=== PATIENT | male | born 1955 | race Caucasian/White ===

== ENCOUNTER 2016-08-25 14:43 | Observation (INO) | payer BC, OTHER ==
[~2016-08-25] VITALS: Ht 167.6 cm; Wt 106.2 kg
[~2016-08-25 14:43] MED LIST: AGM875 PO; ASPEC81 PO; MULTTAB58 PO; OSTEO BIFLEX; PRLSR20 PO
[2016-08-25] MEDS ORDERED: SODIUM CHLORIDE 0.9% 1000ML 1,000 ML IV STA (15:04)
[2016-08-25] MEDS ORDERED: SODIUM CHLORIDE 0.9% 1000ML 1,000 ML IV ONE (15:04)
--- NOTE | 2016-08-25 15:22 | EMERGENCY ROOM VISIT NOTE ---
History Report prepared by Eugenie: Natan Andrade Under the Supervision of: Dr. Baltazar Cabrera M.D. First contact with patient: 14:59 Chief Complaint: DIZZY Stated Complaint: ILLNESS Nursing Triage Summary: Patient presents to [facility] via BLS from the doctor's office. Patient states "I was recently diagnosed with type 2 diabetes. They started me on Metformin about 4 weeks ago. A few days after starting that medication, I started getting dizzy. I have been so dizzy that on Tuesday, I fell trying to go up the steps. I didn't hit my head or get hurt at all. My doctor stopped the medication after that. I haven't been on it for about a week now. I am still dizzy and nauseated at times." Patient admits to diarrhea which is "normal for me." Patient denies any vomiting. History of Present Illness The patient is a 61 year old male who presents to the Emergency Room with complaints of persistent dizziness for the past four weeks. The patient was initially only experiencing dizziness in the mornings, however for the past four days the dizziness has been constant. He started experiencing the dizziness shortly after starting Metformin for a recent diabetes diagnosis. He stopped taking Metformin one week ago. He has not been checking his BSG at home , but nursing staff notes that it was 111 upon arrival. The patient is positive for nausea. He experiences shortness of breath with exertion which is not new. He has an intermittent "twinge" in his chest which is also not new. He has ringing in his ears at baseline. The patient did have a fall two days ago. The patient denies fevers, headache, changes in vision, black or bloody stools, urinary symptoms, or leg pain / swelling. He does not take any blood thinners other than daily aspirin. He has been trying to keep up with fluids. He has a history of heart valve disease. He denies history of thyroid disease. Source of History: patient Onset: four weeks ago Position: other (global) Quality: other (dizziness) Timing: other (persistent) Associated Symptoms: + nausea, No fevers, No headache, No hematochezia, No melena, No urinary symptoms Review of Systems See HPI for pertinent positives & negatives. A total of 10 systems reviewed and were otherwise negative. Past Medical & Surgical Medical Problems: (1) GERD (gastroesophageal reflux disease) (2) HLD (hyperlipidemia) (3) JO (nonalcoholic steatohepatitis) (4) LINDA on CPAP (5) Osteoarthritis (6) Seasonal allergies (7) Type 2 diabetes mellitus Surgical Problems: (1) H/O hernia repair (2) History of carpal tunnel surgery Old medical records were reviewed. Nurse's notes were reviewed and I agree with. Family History No pertinent family history Social History Smoking Status: Former Smoker Drug Use: none Current/Historical Medications Scheduled Aspirin (Aspirin Ec), 81 MG PO DAILY B Complex W/ C (Vitamin B Complex-C), 1 CAP PO DAILY Diclofenac (Voltaren), 75 MG PO BIDM Fish Oil ([place]-3), 1 CAP PO TID Nutritional Supplements (Glucosamine Complex), 1 TAB PO BID Omeprazole (Prilosec), 40 MG PO DAILY Ranitidine (Zantac), 300 MG PO HS Sertraline (Zoloft), 100 MG PO DAILY Scheduled PRN Cyclosporine (Ophth) (Restasis), 1 DROP OPB DAILY PRN for DRYNESS Allergies Coded Allergies: Lovastatin (Verified Allergy, Severe, ITCHY RASH, 08/25/16) Quinidine (Verified Allergy, Unknown, UNKNOWN, 08/25/16) Rofecoxib (Verified Adverse Reaction, Severe, GI SYMPTOMS, 08/25/16) CI Pigment Blue 63 (Verified Adverse Reaction, Unknown, SEES SPOTS, SLEEPINESS, 08/25/16) Duloxetine (Verified Adverse Reaction, Unknown, SEES SPOTS, SLEEPINESS, ) Meloxicam (Verified Adverse Reaction, Unknown, WEIGHT GAIN, VISUAL DISTURBANCES, 08/25/16) Physical Exam Vital Signs Date Time Temp Pulse Resp B/P Pulse Ox O2 Delivery O2 Flow Rate FiO2 08/25/16 17:15 89 18 131/84 95 Room Air 08/25/16 16:05 89 20 129/75 94 Room Air 08/25/16 15:04 89 18 124/85 95 Room Air 100 141/84 98 150/90 08/25/16 14:59 94 08/25/16 14:52 37.1 92 18 143/94 95 Room Air Physical Exam General: Non ill-appearing older male in no acute distress, breathing comfortably on room air. Normal speech HEENT: Normal cephalic atraumatic. Pupils are equal round and reactive to light. Extraocular movements are intact. Oropharynx is pink with moist mucous membranes. No swelling of the mouth lips or tongue. Neck: Supple with a midline trachea. No meningeal signs or stiffness, no JVD or bruits. No Stridor. Chest: Clear to auscultation bilaterally. No wheezes or rhonchi. No increased work of breathing. Heart: regular rate and rhythm. 2/6 systolic murmur. Abdomen: Soft nontender, nondistended without rebound guarding or rigidity. Extremities: No cyanosis clubbing or edema. No calf tenderness or assymetry. No edema of the lower extremities. Arthritic changes right hand. Spine/Back. Non tender to palpation. No CVA tenderness Skin: Good turgor without rashes. Neurologic exam: Cranial nerves two through 12 are intact. Motor and sensation are intact and symmetrical throughout. Medical Decision & Procedures ER Provider Diagnostic Interpretation: Radiology results as stated below per my review and radiologist interpretation: CHEST ONE VIEW PORTABLE CLINICAL HISTORY: CHEST PAIN pain COMPARISON STUDY: 11/30/2012 FINDINGS: Mild stable cardiomegaly. Diaphragms smooth. Lungs are clear. IMPRESSION: Mild stable cardiomegaly. No acute process. Electronically signed by: Brendon Melendez M.D. 08/25/2016 3:36 PM Dictated Date/Time: 08/25/2016 3:[address] CT DOSE: 765.09 mGycm HISTORY: Mental status change dizziness TECHNIQUE: Multiaxial CT images of the head were performed without the use of intravenous contrast. Comparison: None. Findings: The paranasal sinuses and mastoid air cells are clear. The calvarium and skull base are intact. The ventricles and sulci are within normal limits. There is no mass, hematoma, midline shift, or acute infarct. Impression: No acute intracranial abnormality. Electronically signed by: Brendon Melendez M.D. 08/25/2016 3:32 PM Dictated Date/Time: 08/25/2016 3:31 PM Laboratory Results 08/25/16 14:53 Red Blood Count 5.15, Mean Corpuscular Volume 95.1, Mean Corpuscular Hemoglobin 32.6, Mean Corpuscular Hemoglobin Concent 34.3, Mean Platelet Volume 10.4, Neutrophils (%) (Auto) 64.6, Lymphocytes (%) (Auto) 20.5, Monocytes (%) (Auto) 9.3, Eosinophils (%) (Auto) 4.0, Basophils (%) (Auto) 0.6, Neutrophils # (Auto) 5.71, Lymphocytes # (Auto) 1.81, Monocytes # (Auto) 0.82, Eosinophils # (Auto) 0.35, Basophils # (Auto) 0.05 08/25/16 14:53 Test 08/25/16 14:52 08/25/16 14:53 08/25/16 15:00 08/25/16 15:19 Prothrombin Time 9.9 SECONDS (9.0-12.0) Prothromb Time International Ratio 0.9 (0.9-1.1) White Blood Count 8.83 K/uL (4.8-10.8) Red Blood Count 5.15 M/uL (4.7-6.1) Hemoglobin 16.8 g/dL (14.0-18.0) Hematocrit 49.0 % (42-52) Mean Corpuscular Volume 95.1 fL (80-100) Mean Corpuscular Hemoglobin 32.6 pg (25-34) Mean Corpuscular Hemoglobin Concent 34.3 g/dl (32-36) Platelet Count 253 K/uL (130-400) Mean Platelet Volume 10.4 fL (7.4-10.4) Neutrophils (%) (Auto) 64.6 % Lymphocytes (%) (Auto) 20.5 % Monocytes (%) (Auto) 9.3 % Eosinophils (%) (Auto) 4.0 % Basophils (%) (Auto) 0.6 % Neutrophils # (Auto) 5.71 K/uL (1.4-6.5) Lymphocytes # (Auto) 1.81 K/uL (1.2-3.4) Monocytes # (Auto) 0.82 K/uL (0.11-0.59) Eosinophils # (Auto) 0.35 K/uL (0-0.5) Basophils # (Auto) 0.05 K/uL (0-0.2) RDW Standard Deviation 45.5 fL (36.4-46.3) RDW Coefficient of Variation 13.1 % (11.5-14.5) Immature Granulocyte % (Auto) 1.0 % Immature Granulocyte # (Auto) 0.09 K/uL (0.00-0.02) Anion Gap 5.0 mmol/L (3-11) Est Creatinine Clear Calc Drug Dose 107.0 ml/min Estimated GFR () 110.1 Estimated GFR (Non- 95.0 BUN/Creatinine Ratio 24.9 (10-20) Calcium Level 9.0 mg/dl (8.5-10.1) Total Bilirubin 0.2 mg/dl (0.2-1) Direct Bilirubin < 0.1 mg/dl (0-0.2) Aspartate Amino Transf (AST/SGOT) 35 U/L (15-37) Alanine Aminotransferase (ALT/SGPT) 87 U/L (12-78) Alkaline Phosphatase 94 U/L (45-117) Total Creatine Kinase 454 U/L (39-308) Creatine Kinase MB 5.2 ng/ml (0.5-3.6) Creatine Kinase MB Ratio 1.1 (0-3.0) Total Protein 8.0 gm/dl (6.4-8.2) Albumin 3.8 gm/dl (3.4-5.0) Lipase 202 U/L (73-393) Thyroid Stimulating Hormone (TSH) 1.120 uIu/ml (0.300-4.500) Bedside Glucose 111 mg/dl (70-99) Bedside Troponin I 0.000 ng/ml (0-0.045) Test 08/25/16 16:00 Urine Color YELLOW Urine Appearance CLEAR (CLEAR) Urine pH 5.0 (4.5-7.5) Urine Specific [place] 1.017 (1.000-1.030) Urine Protein NEG (NEG) Urine Glucose (UA) NEG (NEG) Urine Ketones NEG (NEG) Urine Occult Blood NEG (NEG) Urine Nitrite NEG (NEG) Urine Bilirubin NEG (NEG) Urine Urobilinogen NEG (NEG) Urine Leukocyte Esterase NEG (NEG) Laboratory studies as stated above per my review. Medications Administered Medications (Trade) Dose Ordered Sig/Nas Route Start Time Stop Time Status Last Admin Dose Admin Sodium Chloride 1,000 ml @ 999 mls/hr Q1H1M STAT IV 08/25/16 15:04 08/25/16 16:04 DC 08/25/16 15:04 999 MLS/HR Sodium Chloride (Nss 1000ml) 1,000 ml @ 150 mls/hr Q6H40M ONCE IV 08/25/16 15:04 08/25/16 21:43 DC 08/25/16 15:04 150 MLS/HR ECG Indication: other (dizzy) Rate (beats per minute): 88 Rhythm: normal sinus Findings: other (non-specific T wave abnormality, no arrythmia) Comparison ECG Date: 06 July 2011 Change: no significant change ED Course 1500: Past medical records reviewed. The patient was evaluated in room A10, and a complete history and physical examination were performed. 1504: NSS 1000 ml @ 150 mls/hr, NSS 1000 ml @ 999 mls/hr. 1720: Updated the patient. 1740: Discussed the case with MILKA Becerra Hospitalist. The patient will be evaluated. Medical Decision Differential diagnosis includes arrhythmia, acute coronary syndrome, central neurologic process, vertigo, anemia, electrolyte or metabolic abnormality. Medication reconciliation: I attest that I have personally reviewed his medication list. Hypertension screening: The patient's blood pressure is mildly elevated initially. He is admitted to hospital where this can be be further monitored This patient comes in as described above. he's had dizziness for several weeks. He thought it was and metformin but has persisted despite stopping the metformin. IV access established and EKG was obtained. His EKG does not show acute ischemic changes as some lateral T-wave flattening/nonspecific abnormalities which is unchanged from previous. He was hydrated with IV normal saline CAT scan of his head and multiple blood testing was obtained he was reassessed frequently. His troponin is not elevated but CK-MB is mildly elevated however. CAT scan is unremarkable is no other electrolyte or metabolic abnormalities. He has taken aspirin already today. I do think he needs to be admitted to rule out acute cardiac event. I have consulted with the hospitalist who saw him in ER and will admit him for these measures. Consults Time Called: 1730 Consulting Physician: MILKA Becerra Hospitalist. Returned Call: 1740 The patient will be evaluated. Impression Primary Impression: Dizziness Additional Impression: Chest discomfort Scribe Attestation The scribe's documentation has been prepared under my direction and personally reviewed by me in its entirety. I confirm that the note above accurately reflects all work, treatment, procedures, and medical decision making performed by me. Departure Information Dispostion Being Evaluated By Hospitalist Referrals Meghan Jules C.RQuinten. (PCP) Patient Instructions My [facility] Problem Qualifiers
[2016-08-25 15:25] LABS: BASO % 0.6 %; BASO ABS # 0.05 K/uL (0-0.2); COMPLETE YES; LYMPH % 20.5 %; LYMPH ABS # 1.81 K/uL (1.2-3.4); MEAN CELL VOLUME 95.1 fL (80-100); MEAN CORPUSCULAR HEMOGLOBIN 32.6 pg (25-34); MEAN CORPUSCULAR HGB CONC 34.3 g/dl (32-36); MEAN PLATELET VOLUME 10.4 fL (7.4-10.4); MONO % 9.3 %; NEUT % 64.6 %; PLATELET COUNT 253 K/uL (130-400); RED BLOOD COUNT 5.15 M/uL (4.7-6.1); WHITE BLOOD COUNT 8.83 K/uL (4.8-10.8)
[2016-08-25 15:32] LABS: ALT/SGPT 87 U/L (12-78); AST/SGOT 35 U/L (15-37); BLOOD UREA NITROGEN 21 mg/dl (7-18); BUN/CREATININE RATIO 24.9 (10-20); CARBON DIOXIDE 28 mmol/L (21-32); CHLORIDE 106 mmol/L (98-107); CREATININE 0.83 mg/dl (0.60-1.40); GLUCOSE 106 mg/dl (70-99); POTASSIUM 4.3 mmol/L (3.5-5.1); SODIUM 139 mmol/L (136-145)
--- NOTE | 2016-08-25 15:34 | DIAGNOSTIC IMAGING REPORT ---
HEAD CT NONCONTRAST CT DOSE: 765.09 mGycm HISTORY: Mental status change dizziness TECHNIQUE: Multiaxial CT images of the head were performed without the use of intravenous contrast. Comparison: None. Findings: The paranasal sinuses and mastoid air cells are clear. The calvarium and skull base are intact. The ventricles and sulci are within normal limits. There is no mass, hematoma, midline shift, or acute infarct. Impression: No acute intracranial abnormality. Electronically signed by: Brendon Melendez M.D. 08/25/2016 3:32 PM Dictated Date/Time: 08/25/2016 3:31 PM
--- NOTE | 2016-08-25 15:37 | DIAGNOSTIC IMAGING REPORT ---
CHEST ONE VIEW PORTABLE CLINICAL HISTORY: CHEST PAIN pain COMPARISON STUDY: 11/30/2012 FINDINGS: Mild stable cardiomegaly. Diaphragms smooth. Lungs are clear. IMPRESSION: Mild stable cardiomegaly. No acute process. Electronically signed by: Brendon Melendez M.D. 08/25/2016 3:36 PM Dictated Date/Time: 08/25/2016 3:35 PM
[2016-08-25 15:43] LABS: ALKALINE PHOSPHATASE 94 U/L (45-117); CKMB/CK RATIO 1.1 (0-3.0)
[2016-08-25 16:13] LABS: URINE APPEARANCE CLEAR (CLEAR); URINE BILIRUBIN NEG (NEG); URINE COLOR YELLOW; URINE NITRITE NEG (NEG); URINE SPECIFIC GRAVITY 1.017 (1.000-1.030); UROBILINOGEN NEG (NEG)
[2016-08-25 16:16] LABS: MANUAL MICROSCOPIC REQUIRED? NO; REVIEW REQ? NO
[2016-08-25] MEDS ORDERED: DICL-201 PO (17:32)
[2016-08-25] MEDS ORDERED: B COCAP3 PO (17:32)
[2016-08-25] MEDS ORDERED: OMEG10007 PO (17:32)
[2016-08-25] MEDS ORDERED: ASPI81TA28 PO (17:32)
[2016-08-25] MEDS ORDERED: NUTRTAB48 PO (17:32)
[2016-08-25] MEDS ORDERED: OMEP40CA41 PO (17:32)
[2016-08-25] MEDS ORDERED: SERT-234 PO (17:32)
[2016-08-25] MEDS ORDERED: CYCL0.052 OPB (17:32)
[2016-08-25] MEDS ORDERED: RANI300T2 PO (17:32)
[2016-08-25] MEDS ORDERED: NITROGLYCERIN 0.4 MG SL PER TAB CHARGE SL PRN (18:30)
[2016-08-25] MEDS ORDERED: ACETAMINOPHEN 325 MG TAB PO PRN (18:30)
[2016-08-25] MEDS ORDERED: ONDANSETRON INJ 2 MG/ML 2 ML VIAL IV PRN (18:30)
--- NOTE | 2016-08-25 18:52 | History and Physical ---
History & Physical Date & Time of Service: August 25, 2016 at 18:24 Chief Complaint: Illness Primary Care Physician: Minor Benjamin MD History of Present Illness Source: patient, clinic records, hospital records Patient seen and examined. 61 year old male with PMHx of DM2, LINDA on CPAP, HLD, and depression presents to the ED complaining of dizziness x 4 weeks. Patient reports that he was diagnosed with DM2 about 5 weeks ago. He was started on metformin and a few days latter he started to have dizziness, and nausea in the mornings. About a week ago he called his PCP and was told to stop the metformin. Since then the nausea has resolved but the dizziness has worsened and over the last four days it has been constant. He describes it as feeling "funny, lightheaded and like he's drunk." He reports it is worse when he stands from a sitting position but continues even when sitting. He states he feels off balance and a few days ago he fell down the stairs. He denies injury at that time. He states it is sometimes worse after eating. Patient reports he has allergies and always feels like he has sinus congestion. He reports chronic tinnitus in his left ear for about 6 years. He states he gets a "twinge" in his left chest off and on that feels like a muscle pulling and that this has also been going on for years. 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 He denies fevers, chills, cough, SOB, palpitations, nausea, vomiting, diarrhea, dysuria, calf pain and edema. He denies vision changes or head trauma. He denies ever having these symptoms in the past. He saw his PCP in followup today who referred him to the ED for further evaluation. In the ED VS are stable,orthostatic VS pulse is positive from supine to sitting otherwise orthostatics are negative. CBC, PRP, Mirtha are negative. CT head and CXR are unremarkable. EKG shows nonspecific t wave changes which are seen on previous EKGs. He received IVFs. He will be observed for further workup and treatment. Past Medical/Surgical History Medical Problems: (1) GERD (gastroesophageal reflux disease) Status: Chronic (2) HLD (hyperlipidemia) Status: Chronic (3) JO (nonalcoholic steatohepatitis) Status: Chronic (4) LINDA on CPAP Status: Chronic (5) Osteoarthritis Status: Chronic (6) Seasonal allergies Status: Chronic (7) Type 2 diabetes mellitus Status: Chronic Surgical Problems: (1) H/O hernia repair Status: Chronic (2) History of carpal tunnel surgery Status: Chronic Family History Diabetes mellitus FH: brain aneurysm SISTER ( of brain aneurysm age 28 ) FH: cancer GRANDMOTHER FH: heart disease FATHER ( of OR at age 46) Social History Smoking Status: Former Smoker Alcohol Use: none Drug Use: none Marital Status: Housing status: lives alone Occupational Status: employed Multi-Drug Resistant Organisms History of MDRO: No Allergies Coded Allergies: Lovastatin (Verified Allergy, Severe, ITCHY RASH, 08/25/16) Quinidine (Verified Allergy, Unknown, UNKNOWN, 08/25/16) Rofecoxib (Verified Adverse Reaction, Severe, GI SYMPTOMS, 08/25/16) CI Pigment Blue 63 (Verified Adverse Reaction, Unknown, SEES SPOTS, SLEEPINESS, 08/25/16) Duloxetine (Verified Adverse Reaction, Unknown, SEES SPOTS, SLEEPINESS, ) Meloxicam (Verified Adverse Reaction, Unknown, WEIGHT GAIN, VISUAL DISTURBANCES, 08/25/16) Home Medications Scheduled Aspirin (Aspirin Ec), 81 MG PO DAILY B Complex W/ C (Vitamin B Complex-C), 1 CAP PO DAILY Diclofenac (Voltaren), 75 MG PO BIDM Fish Oil ([place]-3), 1 CAP PO TID Nutritional Supplements (Glucosamine Complex), 1 TAB PO BID Omeprazole (Prilosec), 40 MG PO DAILY Ranitidine (Zantac), 300 MG PO HS Sertraline (Zoloft), 100 MG PO DAILY Scheduled PRN Cyclosporine (Ophth) (Restasis), 1 DROP OPB DAILY PRN for DRYNESS Review of Systems Constitutional: No chills, No fatigue, No fever, No weakness Eyes: No worsening of vision ENT: + tinnitus, No hearing loss Respiratory: No cough, No shortness of breath Cardiovascular: No edema, No palpitations Abdomen: No constipation, No diarrhea, No nausea, No pain, No vomiting Musculoskeletal: No calf pain, No swelling Genitourinary - Male: No dysuria Neurologic: + balance problems, No numbness/tingling, No vertigo Psychiatric: No anxiety, No insomnia Endocrine: No fatigue Hematologic / Lymphatic: No abnormal bleeding/bruising, No clotting problems Integumentary: No itch, No rash Allergic / Immunologic: + seasonal allergies, No environmental allergies Physical Exam Vital Signs Date Time Temp Pulse Resp B/P Pulse Ox O2 Delivery O2 Flow Rate FiO2 08/25/16 17:15 89 18 131/84 95 Room Air 08/25/16 16:05 89 20 129/75 94 Room Air 08/25/16 15:04 89 18 124/85 95 Room Air 100 141/84 98 150/90 08/25/16 14:59 94 08/25/16 14:52 37.1 92 18 143/94 95 Room Air General Appearance: + pertinent finding (Pleasant WD?WN 61 year old male lying in bed in NAD ) Head: normocephalic, atraumatic Eyes: PERRL, EOMI, sclerae normal ENT: hearing grossly normal, TMs normal, pharynx normal Neck: supple, no JVD, no carotid bruits Respiratory/Chest: chest non-tender, lungs clear, normal breath sounds, no respiratory distress, no accessory muscle use Cardiovascular: regular rate, rhythm, no edema, no gallop, no JVD, normal peripheral pulses, + systolic murmur Abdomen/GI: normal bowel sounds, non tender, soft Back: normal inspection, no muscle spasm Extremities/Musculoskelatal: no calf tenderness, normal capillary refill, no pedal edema Neurologic/Psych: alert, oriented x 3, + pertinent finding (no focal deficits noted, subjective dizziness ) Skin: normal color, warm/dry, no rash Lymphatic: no adenopathy Diagnostics Laboratory Results Results Past 24 Hours Test 08/25/16 14:53 08/25/16 15:19 08/25/16 16:00 Range/Units White Blood Count 8.83 4.8-10.8 K/uL Red Blood Count 5.15 4.7-6.1 M/uL Hemoglobin 16.8 14.0-18.0 g/dL Hematocrit 49.0 42-52 % Mean Corpuscular Volume 95.1 80-100 fL Mean Corpuscular Hemoglobin 32.6 25-34 pg Mean Corpuscular Hemoglobin Concent 34.3 32-36 g/dl Platelet Count 253 130-400 K/uL Mean Platelet Volume 10.4 7.4-10.4 fL Neutrophils (%) (Auto) 64.6 % Lymphocytes (%) (Auto) 20.5 % Monocytes (%) (Auto) 9.3 % Eosinophils (%) (Auto) 4.0 % Basophils (%) (Auto) 0.6 % Neutrophils # (Auto) 5.71 1.4-6.5 K/uL Lymphocytes # (Auto) 1.81 1.2-3.4 K/uL Monocytes # (Auto) 0.82 0.11-0.59 K/uL Eosinophils # (Auto) 0.35 0-0.5 K/uL Basophils # (Auto) 0.05 0-0.2 K/uL RDW Standard Deviation 45.5 36.4-46.3 fL RDW Coefficient of Variation 13.1 11.5-14.5 % Immature Granulocyte % (Auto) 1.0 % Immature Granulocyte # (Auto) 0.09 0.00-0.02 K/uL Sodium Level 139 136-145 mmol/L Potassium Level 4.3 3.5-5.1 mmol/L Chloride Level 106 98-107 mmol/L Carbon Dioxide Level 28 21-32 mmol/L Anion Gap 5.0 3-11 mmol/L Blood Urea Nitrogen 21 7-18 mg/dl Creatinine 0.83 0.60-1.40 mg/dl Est Creatinine Clear Calc Drug Dose 107.0 ml/min Estimated GFR () 110.1 Estimated GFR (Non- 95.0 BUN/Creatinine Ratio 24.9 10-20 Random Glucose 106 70-99 mg/dl Calcium Level 9.0 8.5-10.1 mg/dl Total Bilirubin 0.2 0.2-1 mg/dl Direct Bilirubin < 0.1 0-0.2 mg/dl Aspartate Amino Transf (AST/SGOT) 35 15-37 U/L Alanine Aminotransferase (ALT/SGPT) 87 12-78 U/L Alkaline Phosphatase 94 45-117 U/L Total Creatine Kinase 454 39-308 U/L Creatine Kinase MB 5.2 0.5-3.6 ng/ml Creatine Kinase MB Ratio 1.1 0-3.0 Total Protein 8.0 6.4-8.2 gm/dl Albumin 3.8 3.4-5.0 gm/dl Lipase 202 73-393 U/L Thyroid Stimulating Hormone (TSH) 1.120 0.300-4.500 uIu/ml Bedside Troponin I 0.000 0-0.045 ng/ml Urine Color YELLOW Urine Appearance CLEAR CLEAR Urine pH 5.0 4.5-7.5 Urine Specific [place] 1.017 1.000-1.030 Urine Protein NEG NEG Urine Glucose (UA) NEG NEG Urine Ketones NEG NEG Urine Occult Blood NEG NEG Urine Nitrite NEG NEG Urine Bilirubin NEG NEG Urine Urobilinogen NEG NEG Urine Leukocyte Esterase NEG NEG Microbiology Results 08/25/16 Urine Culture, Received Pending Diagnostic Radiology CXR Per radiologist read: IMPRESSION: Mild stable cardiomegaly. No acute process. CT HEAD Per radiologist read: Impression: No acute intracranial abnormality. EKG NSR 88 BPM, QTc 396 nonspecific t wave changes, no significant change when compared to previous Impression Assessment and Plan 61 year old male presents to the ED complaining of on going dizziness/off balance feeling for about a month worsening over the last several days. Initially patient attributed symptoms to metformin use but this was stopped one week ago and symptoms have worsened INTRACTABLE DIZZINESS -observation in tele -CT head negative, EKG unchanged from previous, orthostatic VS okay, lytes renal function, CBC, Mirtha unremarkable -? cause, symptoms concerning for cerebellar disease -Chart review reveals FMHx of sister with brain aneurysm at age 28 -check MRI head -MRA head and neck (MRA head known for low yield however indicated in this instance d/t 6 + years of left ear tinnitus) -Update echo - known mild on echo 2014 likely not much change in 2 years however valve was poorly visualized at that time -Monitor in tele for any arrhythmia -fall precautions -CBC, PRP, Mg in AM H/O AORTIC STENOSIS -mild per echo in 2014 -will update given current symptomatology DM2 -Recent A1c 6.5 -Metformin recently stopped d/t possible side effects -random serum glucose 106 today -Consistent carb diet -PRP in AM HLD -history of statin intolerance -continue Fish oil LINDA -continue CPAP DEPRESSION -continue Zoloft GERD -continue PPI, [id number] H/O JO DVT PROPHYLAXIS: Sq heparin CODE STATUS: FULL CODE DISPO: observation pending further workup Patient seen in collaboration with Dr. Adkins VTE Prophylaxis VTE Risk Assessment Done? Y/N: Yes Risk Level: Moderate Given or contraindicated: SCD's, Refusal of treatmnt by pt (pt refused SQ heparin) Note ATTENDING ADDENDUM Record reviewed. Patient interviewed and examined in ED. Care coordinated with Wendy Moctezuma PA-C. Please refer to her documentation for patient's history. Briefly, 61 YO male with history of mild aortic stenosis, DM type 2, dyslipidemia, and other problems as noted. Presented to ED for evaluation of "dizziness." Upon further questioning, patient appears to be having ataxia, rather that vertigo or lightheadedness. He has fallen once without suffering any injury. No headaches. No other neuro symptoms. EXAM: General- no distress VS- as noted Neck- carotids 2/2 without bruits Lungs- clear Heart- RRR, III/ systolic murmur at base Abdomen- + BS, soft, nontender Extremities- no pretibial edema or calf tenderness Neuro- alert, oriented; PERRL, EOMI; no facial palsy; no dysarthria or aphasia ; motor strength upper and lower extremities grossly intact; difficulty with finger to nose due to decreased ROM shoulders DATA: Random glucose 103. Total BR 0.2, AST 35, ALT 87, alk phos 94, CPK 454, troponin 0. Other lab studies as noted. CXR- mild cardiomegaly. CT head negative.90 reviewed and demonstrated NSR at 90 / minute, inferolateral T-wave flattening and inversion. ASSESSMENT AND PLAN: ATAXIA Etiology uncertain. CT head negative. Check MRI brain with MRA intracranial and cervical vessels. Consult Neuro. AORTIC STENOSIS Check f/u echo. Please refer to PATRICIO Moctezuma's documentation for discussion of other issues. Santiago Adkins MD .
[2016-08-25 19:55] LABS: INR 0.9 (0.9-1.1); PROTHROMBIN TIME (PATIENT) 9.9 SECONDS (9.0-12.0)
[2016-08-25] MEDS ORDERED: IV FLUIDS COMPLETED PRN (20:00)
--- NOTE | 2016-08-25 20:17 | DIAGNOSTIC IMAGING REPORT ---
BONY ORBITS 3 VIEWS CLINICAL HISTORY: MRI clearance. FINDINGS: 3 views of the bony orbits are correlated with CT of the brain dated 08/25/2016. There is no radiodense/metallic foreign body seen in the region of the bony orbits. The bony orbits are grossly intact. The imaged paranasal sinuses and the mastoid air cells appear clear. The visualized calvarium appears intact. The patient is edentulous. IMPRESSION: There is no radiodense/metallic foreign body seen in the region of the bony orbits. Electronically signed by: Jack Obrien M.D. 08/25/2016 8:16 PM Dictated Date/Time: 08/25/2016 8:15 PM
[2016-08-25] MEDS ORDERED: NUTRITIONAL SUPPLEMENTS PO SCH (21:00)
[2016-08-25] MEDS: OMEGA-3 (PURIFIED FISH OIL) 1 GM CAP PO SCH (21:00)
--- NOTE | 2016-08-25 21:07 | DIAGNOSTIC IMAGING REPORT ---
MR ANGIOGRAM OF THE BRAIN CLINICAL HISTORY: Dizziness. Change in mental status. COMPARISON STUDY: CT of the brain dated 08/25/2016. TECHNIQUE: 3-D [id number] MR angiography of the intracranial circulation is performed. 3-D tumble views are created and assessed. IV contrast was not administered for this examination. FINDINGS: There is a small right posterior communicating artery. The internal carotid arteries are widely patent bilaterally, as are the anterior and middle cerebral arteries. The vertebrobasilar system and posterior cerebral arteries are widely patent. The vertebral arteries are codominant. There is a 5 mm aneurysm arising from the right and 3 segment as seen on axial image #99. No additional aneurysm is seen. There is no high-grade stenosis or focal vessel cutoff seen throughout the intracranial circulation. The brain parenchyma is normal as visualized. IMPRESSION: 1. 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 2. Otherwise unremarkable MR angiogram of the brain. Electronically signed by: Jack Obrien M.D. 08/25/2016 9:06 PM Dictated Date/Time: 08/25/2016 9:02 PM
[2016-08-25 21:57] VITALS: BP 136/88; PULSE 82; TEMP 36.6; O2SAT 93
[2016-08-25] MEDS: HEPARIN SOD 5000 UNIT/0.5 ML CARP SQ SCH (22:00)
[2016-08-25] MEDS ORDERED: GADAVIST IV PRN (22:00)
--- NOTE | 2016-08-25 22:05 | DIAGNOSTIC IMAGING REPORT ---
MR ANGIOGRAM OF THE NECK COMBO CLINICAL HISTORY: Dizziness. COMPARISON STUDY: Carotid artery ultrasound dated 07/11/2009. TECHNIQUE: Axial 2-D [id number] MR angiography of the neck is performed. Subsequently, following the IV administration of 10 cc of Gadavist coronal MR angiogram of the neck was performed to corroborate the findings. 3-D reformats are created and assessed. All measurements were calculated based on NASCET criteria. FINDINGS: Visualized portions of the thoracic aorta are normal in caliber. The aortic arch demonstrates standard 3-vessel anatomy. The subclavian arteries are widely patent. The right common carotid artery is widely patent, as are the right internal and external carotid arteries. The left common carotid artery is widely patent, as are the left internal and external carotid arteries. The vertebral arteries are widely patent and codominant. IMPRESSION: Unremarkable MR angiogram of the neck Electronically signed by: Jack Obrien M.D. 08/25/2016 10:04 PM Dictated Date/Time: 08/25/2016 10:00 PM
--- NOTE | 2016-08-25 22:09 | DIAGNOSTIC IMAGING REPORT ---
MRI OF THE BRAIN COMBO CLINICAL HISTORY: Dizziness. COMPARISON STUDY: CT of the brain dated 08/25/2016. TECHNIQUE: MRI of the brain was performed utilizing various T1 and T2-weighted sequences in the axial, sagittal, and coronal planes. Contrast-enhanced sequences were acquired following the administration of 10 cc of Gadavist. FINDINGS: Brain parenchyma: The brain parenchyma is normal in appearance. There is no hemorrhage or mass effect. There is no restricted diffusion to suggest acute ischemia. No enhancing mass lesion is identified on the postcontrast images. Ash-white matter differentiation is preserved. No extra-axial fluid collection is seen. The cerebellar tonsils are normal in configuration. Ventricles, sulci, and cisterns: Normal in configuration. Pituitary and sella: Unremarkable. Intracranial vasculature: Normal flow voids are maintained at the skull base. Orbits: The bony orbits are grossly intact. Orbital contents are normal in appearance. Sinuses and mastoids: There is a retention cyst in the right maxillary antrum. Mucosal thickening is seen within the left frontal sinus. The remaining paranasal sinuses are clear. The mastoid air cells are well pneumatized. Calvarium: Unremarkable. Cervical cord: Partially visualized cervical spinal cord is normal in morphology and signal intensity. IMPRESSION: No acute intracranial abnormality. Electronically signed by: Jack Obrien M.D. 08/25/2016 10:07 PM Dictated Date/Time: 08/25/2016 10:04 PM
[2016-08-25] MEDS: RANITIDINE HCL 150 MG TAB PO SCH (22:26)
[2016-08-25 22:31] VITALS: BP 136/88; PULSE 82; TEMP 36.6; O2SAT 93; Ht 167.6 cm; Wt 106.2 kg
[2016-08-26] VITALS (11 sets, daily range): BP systolic 103–161; BP diastolic 68–96; PULSE 73–88; TEMP 35.7–37; O2SAT 92–97
[2016-08-26] MEDS: HEPARIN SOD 5000 UNIT/0.5 ML CARP SQ SCH ×3 (06:00→21:32)
[2016-08-26 06:53] LABS: HEMATOCRIT 48.2 % (42-52); MEAN CELL VOLUME 95.3 fL (80-100); MEAN CORPUSCULAR HGB CONC 33.6 g/dl (32-36); MEAN PLATELET VOLUME 10.5 fL (7.4-10.4); PLATELET COUNT 227 K/uL (130-400); RED BLOOD COUNT 5.06 M/uL (4.7-6.1); WHITE BLOOD COUNT 7.97 K/uL (4.8-10.8)
[2016-08-26 07:23] LABS: BUN/CREATININE RATIO 23.7 (10-20); CALCIUM 8.8 mg/dl (8.5-10.1); CREATININE 0.75 mg/dl (0.60-1.40); MAGNESIUM 2.4 mg/dl (1.8-2.4); POTASSIUM 4.2 mmol/L (3.5-5.1)
[2016-08-26] MEDS ORDERED: PERFLUTREN LIPID MICROSPHERE (DEFINITY) IV ONE (08:53)
[2016-08-26] MEDS: SERTRALINE HCL 100 MG TAB PO SCH (08:54)
[2016-08-26] MEDS: ASPIRIN 81 MG ECTAB PO SCH (08:55)
[2016-08-26] MEDS: PANTOprazole SOD 40 MG TAB PO SCH (08:55)
[2016-08-26] MEDS: VITAMIN B COMPLEX TAB PO SCH (08:55)
[2016-08-26] MEDS: OMEGA-3 (PURIFIED FISH OIL) 1 GM CAP PO SCH ×3 (08:55→21:32)
--- NOTE | 2016-08-26 13:19 | ECHOCARDIOGRAM REPORT ---
*NOTICE TO RECEIVING LIBERTARIAN AGENCY This information is strictly Confidential and protected under [place] law. [place] law prohibits you from making any further disclosure of this information unless further disclosure is expressly permitted by the written consent of the person to whom it pertains or is authorized by law. A general authorization for the release of medical or other information is not sufficient for this purpose. Hospital accepts no responsibility if the information is made available to any other person, INCLUDING THE PATIENT. Interpretation Summary * Name: ALLY WINCHESTER Study Date: 08/26/2016 07:45 AM BP: 156/92 mmHg * Patient Location: [facility]\S\N281\S\2 HR: 72 * : 1955 (M/d/yyyy) Gender: Male Height: 65 in * Age: 61 yrs Ethnicity: CA Weight: 235 lb * Ordering Physician: Wendy Moctezuma * Performed By: Miriam Ho * * Reason For Study: VALVULAR HEART DISEASE, PRESYNCOPE, H/O * BSA: 2.1 m2 * -- Conclusions -- * The left ventricle is normal in size. * There is mild concentric left ventricular hypertrophy. * The left ventricular wall motion is normal. * Left ventricular systolic function is normal. * Ejection Fraction = 60-65%. * The aortic valve is not well visualized. * The aortic valve leaflets are mildly calcified. * Mild valvular aortic stenosis. * No aortic regurgitation is present. Procedure Details * A complete two-dimensional transthoracic echocardiogram was performed (2D, M-mode, Doppler and color flow Doppler). * A contrast injection of Definity was performed to improve assessment of LV function. * Contrast was injected into an intravenous site in the left arm. * One vial of Definity ultrasound contrast was diluted in normal saline to a total volume of 10 ml. A total of '3' ml of solution was administered during imaging. * Lot # [id number] of Definity utilized for procedure. * Expiration date 07/27. * The attending nurse who injected the contrast agent was LIGIA COTTO RN. Left Ventricle * The left ventricle is normal in size. * There is mild concentric left ventricular hypertrophy. * Ejection Fraction = 60-65%. * Left ventricular systolic function is normal. * The left ventricular wall motion is normal. Right Ventricle * The right ventricle is normal in size and function. Atria * The left atrial size is normal. * Right atrial size is normal. * No ASD detected; PFO is not assessed. Mitral Valve * The mitral valve anatomy is normal. * There is no mitral valve stenosis. * There is trace mitral regurgitation. Tricuspid Valve * The tricuspid valve anatomy is normal. * There is no tricuspid stenosis. * There is trace tricuspid regurgitation. * Doppler findings do not suggest pulmonary hypertension. Aortic Valve * The aortic valve is not well visualized. * The aortic valve leaflets are mildly calcified. * Mild valvular aortic stenosis. * No aortic regurgitation is present. Pulmonic Valve * The pulmonic valve is not well visualized. Great Vessels * The aortic root is normal size. Pericardium/Pleural * There is no pericardial effusion. Great Vessels * Normal inferior vena cava diameter and respiratory variation suggests normal central venous pressure. Left Ventricular Diastolic Function * Grade I diastolic dysfunction, (abnormal relaxation pattern). MMode 2D Measurements and Calculations IVSd 1.2 cm IVSs 1.9 cm LVIDd 4.3 cm LVIDs 2.8 cm LVPWd 1.6 cm LVPWs 2.1 cm IVS/LVPW 0.72 FS 34.8 % EDV(Teich) 81.3 ml ESV(Teich) 29.0 ml EF(Teich) 64.3 % EDV(cubed) 77.4 ml ESV(cubed) 21.5 ml EF(cubed) 72.3 % % IVS thick 60.2 % % LVPW thick 26.4 % LV mass(C)d 229.9 grams LV mass(C)dI 108.5 grams/m\S\2 LV mass(C)s 235.8 grams LV mass(C)sI 111.3 grams/m\S\2 CO(Teich) 4.1 l/min CI(Teich) 1.9 l/min/m\S\2 SV(Teich) 52.3 ml SI(Teich) 24.7 ml/m\S\2 CO(cubed) 4.4 l/min CI(cubed) 2.1 l/min/m\S\2 SV(cubed) 55.9 ml SI(cubed) 26.4 ml/m\S\2 ACS 0.72 cm asc Aorta Diam 3.4 cm LVOT diam 2.0 cm LVOT area 3.1 cm\S\2 LVAd ap4 32.9 cm\S\2 LVLd ap4 9.6 cm EDV(MOD-sp4) 91.0 ml LVAs ap4 16.8 cm\S\2 LVLs ap4 7.8 cm ESV(MOD-sp4) 32.0 ml EF(MOD-sp4) 64.8 % LVAd ap2 31.0 cm\S\2 LVLd ap2 9.5 cm EDV(MOD-sp2) 82.0 ml LVAs ap2 16.2 cm\S\2 LVLs ap2 8.1 cm ESV(MOD-sp2) 28.0 ml EF(MOD-sp2) 65.9 % CO(MOD-sp4) 4.6 l/min CI(MOD-sp4) 2.2 l/min/m\S\2 SV(MOD-sp4) 59.0 ml SI(MOD-sp4) 27.9 ml/m\S\2 CO(MOD-sp2) 4.2 l/min CI(MOD-sp2) 2.0 l/min/m\S\2 SV(MOD-sp2) 54.0 ml SI(MOD-sp2) 25.5 ml/m\S\2 Doppler Measurements and Calculations MV E max min 87.4 cm/sec MV A max min 64.1 cm/sec MV E/A 1.4 MV dec time 0.14 sec Ao V2 max 260.7 cm/sec Ao max PG 27.2 mmHg Ao max PG (full) 22.0 mmHg Ao V2 mean 157.9 cm/sec Ao mean PG 12.4 mmHg Ao V2 VTI 51.2 cm MAXIMUS(V,A) 1.4 cm\S\2 MAXIMUS(V,D) 1.4 cm\S\2 LV V1 max PG 5.2 mmHg LV V1 max 113.9 cm/sec PA V2 max 52.1 cm/sec PA max PG 1.1 mmHg
--- NOTE | 2016-08-26 14:33 | Neurology Consultation ---
Neurology Consultation Date of Consultation: August 26, 2016. Attending Physician: Judy Aldrich M.D. Primary Care Physician: Minor Benjamin MD Reason for Consultation: dizziness balance issues, dizzy History of Present Illness Source: patient Bruce is a 61 year old male with PMH - DM2, LINDA on CPAP, HLD,fatty liver disease and depression. He presented with a4 week history of dizziness. He was diagnosed with DM2 about 5 weeks ago and his PCP started him on metformin and a few days later he started to have dizziness, nausea and blotting pain in the mornings. He called his PCP and was told to stop the metformin. Since then the nausea has resolved but the dizziness has worsened and over the last four days it has been constant. He describes it as feeling "funny, lightheaded and like he 's drunk." He reports it is worse with walking and moving his head and also increases when he is lying in bed. 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 He states it is sometimes worse after eating and has chronic tinnitus in his left ear for about 6 years. He states he gets a "twinge" in his left chest off and on that feels like a muscle pulling and that this has also been going on for years. 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 denies fevers , chills, cough, SOB, palpitations, vomiting, diarrhea, dysuria, calf pain and edema, no vision changes or head trauma. he has never had vertigo in the past. There is a strong history of vascular disease. His was orthostatic positive from supine to sitting. EKG shows nonspecific t wave changes which are seen on previous EKGs. In the past he was a 2+ ppd smoker quit 5 years ago, heavy drinker but quit, and also smoked marijuana in the past. strong family history of vascular disease Past Medical/Surgical History Medical Problems: (1) Chest discomfort Status: Acute (2) Dizziness Status: Acute Social History Smoking Status: Former smoker Alcohol Use: past heavy EtOH use Drug Use: none, marijuana, other (past user) Marital Status: Occupation Status: employed Allergies Coded Allergies: Lovastatin (Verified Allergy, Severe, ITCHY RASH, 08/25/16) Quinidine (Verified Allergy, Unknown, UNKNOWN, 08/25/16) Rofecoxib (Verified Adverse Reaction, Severe, GI SYMPTOMS, 08/25/16) CI Pigment Blue 63 (Verified Adverse Reaction, Unknown, SEES SPOTS, SLEEPINESS, 08/25/16) Duloxetine (Verified Adverse Reaction, Unknown, SEES SPOTS, SLEEPINESS, ) Meloxicam (Verified Adverse Reaction, Unknown, WEIGHT GAIN, VISUAL DISTURBANCES, 08/25/16) Current Inpatient Medications Current Inpatient Medications Medications (Trade) Dose Ordered Sig/Nas Route Start Time Stop Time Status Last Admin Dose Admin Heparin Sodium (Porcine) (Heparin Sq 5000 Unit/0.5ml) 5,000 unit Q8 SQ 08/25/16 22:00 09/24/16 21:59 Acetaminophen (Tylenol Tab) 650 mg Q4H PRN PO 08/25/16 18:30 09/24/16 18:29 Ondansetron HCl (Zofran Inj) 4 mg Q6H PRN IV 08/25/16 18:30 09/24/16 18:29 Nitroglycerin (Nitrostat Tab) 0.4 mg UD PRN SL 08/25/16 18:30 09/24/16 18:29 Aspirin (Ecotrin Tab) 81 mg DAILY PO 08/26/16 09:00 09/25/16 08:59 08/26/16 08:55 81 MG Fish Oil (Carlyle-3 (Purified Fish Oil) Cap) 1 gm TID PO 08/25/16 21:00 09/24/16 20:59 08/26/16 08:55 1 GM Sertraline HCl (Zoloft Tab) 100 mg DAILY PO 08/26/16 09:00 09/25/16 08:59 08/26/16 08:54 100 MG Vitamin B Complex (Vitamin B Complex) 1 tab DAILY PO 08/26/16 09:00 09/25/16 08:59 08/26/16 08:55 1 TAB Miscellaneous Information (Order Awaiting Action) 1 ea QS N/A 08/25/16 21:00 09/24/16 20:59 Pantoprazole Sodium (Protonix Tab) 40 mg DAILY PO 08/26/16 09:00 09/25/16 08:59 08/26/16 08:55 40 MG Ranitidine HCl (zANTac TAB) 300 mg HS PO 08/25/16 21:00 09/24/16 20:59 08/25/16 22:26 300 MG Miscellaneous (Iv Fluids Completed) 1 ea PRN PRN N/A 08/25/16 20:00 08/25/17 19:59 Gadobutrol (Gadavist) 10 mmol UD PRN IV 08/25/16 22:00 08/29/16 21:59 Physical Exam Vital Signs (Past 24 Hrs): Date Time Temp Pulse Resp B/P Pulse Ox O2 Delivery O2 Flow Rate FiO2 08/26/16 12:00 Room Air 08/26/16 11:16 36.6 82 22 108/72 96 Room Air 161/92 08/26/16 08:00 97 Room Air 08/26/16 07:21 35.7 73 20 103/68 97 BiPAP 08/26/16 03:52 36.9 74 20 156/92 94 CPAP 08/26/16 02:15 76 96 21 08/26/16 00:09 36.7 80 20 149/96 92 Room Air 08/25/16 22:31 36.6 82 18 136/88 93 Room Air 08/25/16 21:57 36.6 82 18 136/88 93 Room Air 08/25/16 19:27 96 18 127/88 93 Room Air 08/25/16 17:15 89 18 131/84 95 Room Air 08/25/16 16:05 89 20 129/75 94 Room Air 08/25/16 15:04 89 18 124/85 95 Room Air 100 141/84 98 150/90 08/25/16 14:59 94 08/25/16 14:52 37.1 92 18 143/94 95 Room Air Physical Exam: Constitutional: appearance nourished, obese Ears, Nose, Mouth and Throat: mucous membranes moist, no injection and skin normal, eyes normal Cardiovascular: normal S-1 and S-2 and regular rate and rhythm Respiratory: clear to auscultation (CTA) and no rales, rhonchi or wheeze Musculoskeletal: no peripheral edema and good distal pulses, congenital shoulder and hand defect from Skin: no stigmata of neurocutaneous Eyes: extraocular muscles intact (EOMI) and pupils equal, round and reactive to light (PERRL) NEUROLOGIC EXAMINATION: Mental status: Alert and interactive Oriented to full date and location Oriented to person Speech fluent with no evidence of aphasia Cranial Nerves smile eye brow raise symmetric, tongue midline Reflexes: Deep tendon reflexes were symmetrical and graded 2/5 UE, LE decreased bilaterally. Plantar responses were flexor. Sensory: vibration and GT proprioception in tact head maneuvers bed side didn't provoke symptoms no nystagmus, symptoms with returning to sitting Coordination: Romberg absent Gait/Stance: Posture normal. Gait normal: with steady with steps, base, turning, tandem gait orthopedic gait Motor: Negative for pronator drift of out stretched arms with eyes closed. 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 hip flex plantar flex ext 5/5 Laboratory Results Past 24 Hours: 08/26/16 06:22 08/26/16 06:22 Test 08/25/16 14:52 08/25/16 14:53 08/25/16 15:00 08/25/16 15:19 Prothrombin Time 9.9 SECONDS (9.0-12.0) Prothromb Time International Ratio 0.9 (0.9-1.1) Immature Granulocyte % (Auto) 1.0 % White Blood Count 8.83 K/uL (4.8-10.8) Red Blood Count 5.15 M/uL (4.7-6.1) Hemoglobin 16.8 g/dL (14.0-18.0) Hematocrit 49.0 % (42-52) Mean Corpuscular Volume 95.1 fL (80-100) Mean Corpuscular Hemoglobin 32.6 pg (25-34) Mean Corpuscular Hemoglobin Concent 34.3 g/dl (32-36) Platelet Count 253 K/uL (130-400) Mean Platelet Volume 10.4 fL (7.4-10.4) Neutrophils (%) (Auto) 64.6 % Lymphocytes (%) (Auto) 20.5 % Monocytes (%) (Auto) 9.3 % Eosinophils (%) (Auto) 4.0 % Basophils (%) (Auto) 0.6 % Neutrophils # (Auto) 5.71 K/uL (1.4-6.5) Lymphocytes # (Auto) 1.81 K/uL (1.2-3.4) Monocytes # (Auto) 0.82 K/uL (0.11-0.59) Eosinophils # (Auto) 0.35 K/uL (0-0.5) Basophils # (Auto) 0.05 K/uL (0-0.2) Immature Granulocyte # (Auto) 0.09 K/uL (0.00-0.02) Total Bilirubin 0.2 mg/dl (0.2-1) Direct Bilirubin < 0.1 mg/dl (0-0.2) Aspartate Amino Transf (AST/SGOT) 35 U/L (15-37) Alanine Aminotransferase (ALT/SGPT) 87 U/L (12-78) Alkaline Phosphatase 94 U/L (45-117) Total Creatine Kinase 454 U/L (39-308) Creatine Kinase MB 5.2 ng/ml (0.5-3.6) Creatine Kinase MB Ratio 1.1 (0-3.0) Total Protein 8.0 gm/dl (6.4-8.2) Albumin 3.8 gm/dl (3.4-5.0) Lipase 202 U/L (73-393) Thyroid Stimulating Hormone (TSH) 1.120 uIu/ml (0.300-4.500) Bedside Glucose 111 mg/dl (70-99) Bedside Troponin I 0.000 ng/ml (0-0.045) Test 08/25/16 16:00 08/26/16 06:22 08/26/16 13:33 Urine Color YELLOW Urine Appearance CLEAR (CLEAR) Urine pH 5.0 (4.5-7.5) Urine Specific [place] 1.017 (1.000-1.030) Urine Protein NEG (NEG) Urine Glucose (UA) NEG (NEG) Urine Ketones NEG (NEG) Urine Occult Blood NEG (NEG) Urine Nitrite NEG (NEG) Urine Bilirubin NEG (NEG) Urine Urobilinogen NEG (NEG) Urine Leukocyte Esterase NEG (NEG) Red Blood Count 5.06 M/uL (4.7-6.1) Mean Corpuscular Volume 95.3 fL (80-100) Mean Corpuscular Hemoglobin 32.0 pg (25-34) Mean Corpuscular Hemoglobin Concent 33.6 g/dl (32-36) RDW Standard Deviation 45.7 fL (36.4-46.3) RDW Coefficient of Variation 13.3 % (11.5-14.5) Mean Platelet Volume 10.5 fL (7.4-10.4) Anion Gap 7.0 mmol/L (3-11) Est Creatinine Clear Calc Drug Dose 118.4 ml/min Estimated GFR () 114.8 Estimated GFR (Non- 99.0 BUN/Creatinine Ratio 23.7 (10-20) Calcium Level 8.8 mg/dl (8.5-10.1) Magnesium Level 2.4 mg/dl (1.8-2.4) Imaging MRI brain with and without contrast- No acute intracranial abnormality. MRA brain -. 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 MRA neck- Unremarkable MR angiogram of the neck TTE- * The left ventricle is normal in size. * There is mild concentric left ventricular hypertrophy. * The left ventricular wall motion is normal. * Left ventricular systolic function is normal. * Ejection Fraction = 60-65%. * The aortic valve is not well visualized. * The aortic valve leaflets are mildly calcified. * Mild valvular aortic stenosis. * No aortic regurgitation is present. * no ASD Impression 61 year old male 4 week history of dizziness and balance issues after starting metformin (medication stopped) Plan 1. MRI brain, MRA neck no significant findings 2. MRA brain- 5 mm aneurysm noted-should be follow outpatient with repeat imaging 3. PT- for Ravinder maneuver 4. antivert may help with symptoms 5. optimize DL, HTN, DM- due to vascular finding 6. b12, folate, RPR for reversible causes 7. further recommendations to follow I have seen and discussed above patient with Dr Saundra Felton, neurology Pt seen and examined, images reviewed. MRI brain unremarkable inspite of 1 month of dizziness. This and the absence of other neurologic sx suggests this is peripheral and labrynthine. Exam notable only for mildly wide-based gait and neg Romberg. KKennedy was unable to reliably reproduce the pt sx with provocative head manuevers. Suspect BPPV, rec PT for Ravinder. RE asymptomatic R M3 MCA 5mm aneurysm,rec outpt evaluation at interventional radiology, [place], either Dr. Albrecht or Dr. Caldera, DORI Felton MD
--- NOTE | 2016-08-26 15:31 | Progress Note ---
Internal Med Progress Note Date of Service: August 26, 2016. Provider Documentation: SUBJECTIVE: The patient was seen and examined Admitted with Dizziness and unsteadiness No Fall and no LOC Feels a little better today OBJECTIVE: Vital Signs-as noted below Exam: General-no distress at rest Eyes-normal ENT-normal Neck-supple Lungs-Clear to auscultate bilaterally Heart-Regular ,no murmur appreciated Abdomen-Benign,no masses,bowel sound present Extremities-No edema Neuro-AAOx3 No focal sensory and or motor deficit identified Lab data as noted below. Imaging :: MRI brain with and without contrast- No acute intracranial abnormality. MRA brain -. 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 MRA neck- Unremarkable MR angiogram of the neck ECHO::TTE- * The left ventricle is normal in size. * There is mild concentric left ventricular hypertrophy. * The left ventricular wall motion is normal. * Left ventricular systolic function is normal. * Ejection Fraction = 60-65%. * The aortic valve is not well visualized. * The aortic valve leaflets are mildly calcified. * Mild valvular aortic stenosis. * No aortic regurgitation is present. 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 ECHO -unremarkable ,B12 and Folate -unremarkable ,RPR -pending Has Family H/O cerebral Aneurysm Dizziness could be secondary to Inner Ear disease:Trial of Antivert No Arrhythmia Appreciate Neurology input Clinically better this morning PT/OT evaluation H/O AORTIC STENOSIS -mild per echo in 2014 -will update given current symptomatology DM2 -Recent A1c 6.5 -Metformin recently stopped d/t possible side effects -random serum glucose 106 today -Consistent carb diet -PRP in AM HLD -history of statin intolerance -continue Fish oil LINDA -continue CPAP DEPRESSION -continue Zoloft GERD -continue PPI, H2 kailyn H/O JO No acute issue DVT PROPHYLAXIS: Sq heparin CODE STATUS: FULL CODE DISPO: Likely home in AM Vital Signs: Date Time Temp Pulse Resp B/P Pulse Ox O2 Delivery O2 Flow Rate FiO2 08/26/16 12:00 Room Air 08/26/16 11:16 36.6 82 22 108/72 96 Room Air 161/92 08/26/16 08:00 97 Room Air 08/26/16 07:21 35.7 73 20 103/68 97 BiPAP 08/26/16 03:52 36.9 74 20 156/92 94 CPAP 08/26/16 02:15 76 96 21 08/26/16 00:09 36.7 80 20 149/96 92 Room Air 08/25/16 22:31 36.6 82 18 136/88 93 Room Air 08/25/16 21:57 36.6 82 18 136/88 93 Room Air 08/25/16 19:27 96 18 127/88 93 Room Air 08/25/16 17:15 89 18 131/84 95 Room Air 08/25/16 16:05 89 20 129/75 94 Room Air Lab Results: Results Past 24 Hours Test 08/25/16 16:00 08/26/16 06:22 08/26/16 14:14 Range/Units Urine Color YELLOW Urine Appearance CLEAR CLEAR Urine pH 5.0 4.5-7.5 Urine Specific [place] 1.017 1.000-1.030 Urine Protein NEG NEG Urine Glucose (UA) NEG NEG Urine Ketones NEG NEG Urine Occult Blood NEG NEG Urine Nitrite NEG NEG Urine Bilirubin NEG NEG Urine Urobilinogen NEG NEG Urine Leukocyte Esterase NEG NEG White Blood Count 7.97 4.8-10.8 K/uL Red Blood Count 5.06 4.7-6.1 M/uL Hemoglobin 16.2 14.0-18.0 g/dL Hematocrit 48.2 42-52 % Mean Corpuscular Volume 95.3 80-100 fL Mean Corpuscular Hemoglobin 32.0 25-34 pg Mean Corpuscular Hemoglobin Concent 33.6 32-36 g/dl RDW Standard Deviation 45.7 36.4-46.3 fL RDW Coefficient of Variation 13.3 11.5-14.5 % Platelet Count 227 130-400 K/uL Mean Platelet Volume 10.5 7.4-10.4 fL Sodium Level 142 136-145 mmol/L Potassium Level 4.2 3.5-5.1 mmol/L Chloride Level 108 98-107 mmol/L Carbon Dioxide Level 27 21-32 mmol/L Anion Gap 7.0 3-11 mmol/L Blood Urea Nitrogen 18 7-18 mg/dl Creatinine 0.75 0.60-1.40 mg/dl Est Creatinine Clear Calc Drug Dose 118.4 ml/min Estimated GFR () 114.8 Estimated GFR (Non- 99.0 BUN/Creatinine Ratio 23.7 10-20 Random Glucose 115 70-99 mg/dl Calcium Level 8.8 8.5-10.1 mg/dl Magnesium Level 2.4 1.8-2.4 mg/dl Vitamin B12 Level 716 211-911 pg/mL Folate > 24.00 >5.38 ng/mL Microbiology Results 08/25/16 Urine Culture - Preliminary, Resulted NO GROWTH - LESS THAN 1,000 COLONIES/...
[2016-08-26] MEDS: RANITIDINE HCL 150 MG TAB PO SCH (21:32)
[2016-08-27 00:15] VITALS: PULSE 75; O2SAT 96
[2016-08-27 04:08] VITALS: BP 138/93; PULSE 82; TEMP 37.1; O2SAT 95
[2016-08-27] MEDS: HEPARIN SOD 5000 UNIT/0.5 ML CARP SQ SCH ×2 (06:00→13:37)
[2016-08-27 06:33] LABS: BUN/CREATININE RATIO 22.8 (10-20); CALCIUM 8.9 mg/dl (8.5-10.1); CREATININE 0.76 mg/dl (0.60-1.40); POTASSIUM 3.9 mmol/L (3.5-5.1)
[2016-08-27 06:36] LABS: CHOLESTEROL/HDL RATIO 7.9
[2016-08-27 07:56] VITALS: BP 166/95; PULSE 85; TEMP 36.6; O2SAT 94
[2016-08-27] MEDS: PANTOprazole SOD 40 MG TAB PO SCH (08:35)
[2016-08-27] MEDS: OMEGA-3 (PURIFIED FISH OIL) 1 GM CAP PO SCH ×2 (08:35→13:37)
[2016-08-27] MEDS: VITAMIN B COMPLEX TAB PO SCH (08:35)
[2016-08-27] MEDS: ASPIRIN 81 MG ECTAB PO SCH (08:36)
[2016-08-27] MEDS: SERTRALINE HCL 100 MG TAB PO SCH (08:36)
[2016-08-27 12:11] VITALS: BP 155/89; PULSE 99; TEMP 36.6; O2SAT 92
--- NOTE | 2016-08-27 12:21 | Neurology Progress Notes ---
Neurology Progress Note Date of Service August 27, 2016. Shea Barrera is a 61 year old male with PMH - DM2, LINDA on CPAP, HLD,fatty liver disease and depression. He presented with a4 week history of dizziness. He was diagnosed with DM2 about 5 weeks ago and his PCP started him on metformin and a few days later he started to have dizziness, nausea and blotting pain in the mornings. He called his PCP and was told to stop the metformin. Since then the nausea has resolved but the dizziness has worsened and over the last four days it has been constant. He describes it as feeling "funny, lightheaded and like he 's drunk." He reports it is worse with walking and moving his head and also increases when he is lying in bed. 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 He states it is sometimes worse after eating and has chronic tinnitus in his left ear for about 6 years. He states he gets a "twinge" in his left chest off and on that feels like a muscle pulling and that this has also been going on for years. 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 denies fevers , chills, cough, SOB, palpitations, vomiting, diarrhea, dysuria, calf pain and edema, no vision changes or head trauma. he has never had vertigo in the past. There is a strong history of vascular disease. His was orthostatic positive from supine to sitting. EKG shows nonspecific t wave changes which are seen on previous EKGs. In the past he was a 2+ ppd smoker quit 5 years ago, heavy drinker but quit, and also smoked marijuana in the past. strong family history of vascular disease Today his is up walking with physical therapy and will be evaluated with Mary. He states he feels about the same. Objective Date Time Temp Pulse Resp B/P Pulse Ox O2 Delivery O2 Flow Rate FiO2 08/27/16 12:00 Room Air 08/27/16 08:00 Room Air 08/27/16 07:56 36.6 85 19 166/95 94 Room Air 08/27/16 04:08 37.1 82 16 138/93 95 Room Air 08/27/16 04:00 Room Air 08/27/16 00:15 75 96 21 08/27/16 00:00 Room Air 08/26/16 23:12 37.0 82 18 142/91 93 Room Air 08/26/16 20:00 93 Room Air CPAP 08/26/16 19:07 37.0 87 18 124/79 93 Room Air 08/26/16 16:00 93 Room Air CPAP 08/26/16 15:25 36.8 88 18 121/82 93 Room Air Last 24 Hours Test 08/26/16 14:14 08/27/16 05:17 Vitamin B12 Level 716 pg/mL Folate > 24.00 ng/mL Rapid Plasma Reagin NONREACTIVE Sodium Level 140 mmol/L Potassium Level 3.9 mmol/L Chloride Level 106 mmol/L Carbon Dioxide Level 28 mmol/L Anion Gap 6.0 mmol/L Blood Urea Nitrogen 17 mg/dl Creatinine 0.76 mg/dl Est Creatinine Clear Calc Drug Dose 116.6 ml/min Estimated GFR () 114.1 Estimated GFR (Non- 98.5 BUN/Creatinine Ratio 22.8 Random Glucose 116 mg/dl Calcium Level 8.9 mg/dl Triglycerides Level 262 mg/dl Cholesterol Level 260 mg/dl HDL Cholesterol 33 mg/dl LDL Cholesterol, Calculated 175 mg/dl VLDL Cholesterol, Calculated 52 mg/dl Cholesterol/HDL Ratio 7.9 Imaging: no new imaging Exam: Physical Exam: Constitutional: appearance nourished, healthy and obese Ears, Nose, Mouth and Throat: mucous membranes moist, no injection and skin normal, eyes normal Cardiovascular: normal S-1 and S-2 and regular rate and rhythm Respiratory: clear to auscultation (CTA) and no rales, rhonchi or wheeze Musculoskeletal: no peripheral edema Skin: no stigmata of neurocutaneous disease noted and normal and intact Eyes: extraocular muscles intact (EOMI) and pupils equal, round and reactive to light (PERRL) NEUROLOGIC EXAMINATION: Mental status: Alert and interactive Oriented to full date and location Oriented to person Speech fluent with no evidence of aphasia Cranial Nerves smile eye brow raise symmetric, tongue midline Coordination: finger to nose no bypass, Romberg slightly positive Gait/Stance: Posture normal. Gait normal: with steady with steps, base, turningtandem gait. Motor: Negative for pronator drift of out stretched arms with eyes closed. 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, hip flex plantar flex ext 5/5 Current Inpatient Medications Medications (Trade) Dose Ordered Sig/Nas Route Start Time Stop Time Status Last Admin Dose Admin Heparin Sodium (Porcine) (Heparin Sq 5000 Unit/0.5ml) 5,000 unit Q8 SQ 08/25/16 22:00 09/24/16 21:59 Acetaminophen (Tylenol Tab) 650 mg Q4H PRN PO 08/25/16 18:30 09/24/16 18:29 Ondansetron HCl (Zofran Inj) 4 mg Q6H PRN IV 08/25/16 18:30 09/24/16 18:29 Nitroglycerin (Nitrostat Tab) 0.4 mg UD PRN SL 08/25/16 18:30 09/24/16 18:29 Aspirin (Ecotrin Tab) 81 mg DAILY PO 08/26/16 09:00 09/25/16 08:59 08/27/16 08:36 81 MG Fish Oil (Cheriton-3 (Purified Fish Oil) Cap) 1 gm TID PO 08/25/16 21:00 09/24/16 20:59 08/27/16 08:35 1 GM Sertraline HCl (Zoloft Tab) 100 mg DAILY PO 08/26/16 09:00 09/25/16 08:59 08/27/16 08:36 100 MG Vitamin B Complex (Vitamin B Complex) 1 tab DAILY PO 08/26/16 09:00 09/25/16 08:59 08/27/16 08:35 1 TAB Miscellaneous Information (Order Awaiting Action) 1 ea QS N/A 08/25/16 21:00 09/24/16 20:59 Pantoprazole Sodium (Protonix Tab) 40 mg DAILY PO 08/26/16 09:00 09/25/16 08:59 08/27/16 08:35 40 MG Ranitidine HCl (zANTac TAB) 300 mg HS PO 08/25/16 21:00 09/24/16 20:59 08/26/16 21:32 300 MG Miscellaneous (Iv Fluids Completed) 1 ea PRN PRN N/A 08/25/16 20:00 08/25/17 19:59 Gadobutrol (Gadavist) 10 mmol UD PRN IV 08/25/16 22:00 08/29/16 21:59 Impression 61 year old male 4 week history of dizziness and balance issues after starting metformin (medication stopped) Plan 1. MRI brain, MRA neck no significant findings 2. MRA brain- 5 mm aneurysm noted-should be follow outpatient with repeat imaging 3. PT- for Mary maneuver currently being tried 4. antivert if Mary helpful would also start antivert PRN 5. optimize DL, HTN, DM- due to vascular finding 6. b12, folate, RPR for reversible causes- no revealing labs I have seen and discussed above patient with Dr Saundra Felton, neurology Pt seen and examined, exam nonfocal. Suspect BPPV, mary today, see us in follow -up if sx persists. RE asymptomatic 5 mm R mca aneurysm, pt should see intervential radiology post dc at [facility], either Dr Albrecht or DORI Jones MD
--- NOTE | 2016-08-27 12:50 | Progress Note ---
Medicine Progress Note Date & Time of Visit: August 27, 2016 at 12:21. Subjective Pt was seen and examined Sitting in chair very comfortable with no distress Pt said that the dizziness improved denies any chest pain, palpitation and SOB Objective Last 8 Hrs Date Time Temp Pulse Resp B/P Pulse Ox O2 Delivery O2 Flow Rate FiO2 08/27/16 12:11 36.6 99 19 155/89 92 Room Air 08/27/16 12:00 Room Air 08/27/16 08:00 Room Air 08/27/16 07:56 36.6 85 19 166/95 94 Room Air Physical Exam: General- No acute distress Head- atraumatic Eyes- PERRL, EOMI ENT- oropharynx clear Neck- supple, no JVD Lungs- clear to auscultation, No wheezing Heart- regular rhythm; + systolic murmur Abdomen- normal bowel sounds, soft Extremities- no calf tenderness Neuro- alert, oriented x 3; PERRL, EOMI; no facial palsy Skin- warm & dry Laboratory Results: Last 24 Hours Test 08/26/16 14:14 08/27/16 05:17 Vitamin B12 Level 716 pg/mL Folate > 24.00 ng/mL Rapid Plasma Reagin NONREACTIVE Sodium Level 140 mmol/L Potassium Level 3.9 mmol/L Chloride Level 106 mmol/L Carbon Dioxide Level 28 mmol/L Anion Gap 6.0 mmol/L Blood Urea Nitrogen 17 mg/dl Creatinine 0.76 mg/dl Est Creatinine Clear Calc Drug Dose 116.6 ml/min Estimated GFR () 114.1 Estimated GFR (Non- 98.5 BUN/Creatinine Ratio 22.8 Random Glucose 116 mg/dl Calcium Level 8.9 mg/dl Triglycerides Level 262 mg/dl Cholesterol Level 260 mg/dl HDL Cholesterol 33 mg/dl LDL Cholesterol, Calculated 175 mg/dl VLDL Cholesterol, Calculated 52 mg/dl Cholesterol/HDL Ratio 7.9 Assessment & Plan INTRACTABLE DIZZINESS CT head Negative for any intracranial abnormality MRI head Negative for any intracranial abnormality MRA head showed a 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 MRI orbit showed no radiodense/metallic foreign body seen in the region of the bony orbits. B12, Folate wnl Family hx of cerebral aneurysm No arrhythmia on tele monitor Neuro on board, recommended follow outpatient with repeat imaging for the aneurysm Continue PT Clinically improved ECHO * The left ventricle is normal in size. * There is mild concentric left ventricular hypertrophy. * The left ventricular wall motion is normal. * Left ventricular systolic function is normal. * Ejection Fraction = 60-65%. * The aortic valve is not well visualized. * The aortic valve leaflets are mildly calcified. * Mild valvular aortic stenosis. * No aortic regurgitation is present. * no ASD H/O AORTIC STENOSIS -mild per echo in 2015 -will update given current symptomatology DM2 -Recent A1c 6.5 (07/09/16) -Metformin recently stopped d/t possible side effects -random serum glucose 115 today -Consistent carb diet -Discussed about life style modification, diet and exercise HLD Not at goal Total 260 LDL 175 -history of statin intolerance -(as per pt he said that he did not have any problem with statin, but his chart has allergies with lovastatin) - ( Lipitor was discontinue due to elevated liver enzymes and elevated CK) - Will try Zetia instead for now, Check LFT and CK within 1 week. - Will defer to PCP to try another statin -continue Fish oil LINDA -continue CPAP DEPRESSION -continue Zoloft GERD -continue PPI, H2 kailyn H/O JO No acute issue DVT PROPHYLAXIS: Sq heparin CODE STATUS: FULL CODE Consultants: Neuro Current Inpatient Medications: Current Inpatient Medications Medications (Trade) Dose Ordered Sig/Nas Route Start Time Stop Time Status Last Admin Dose Admin Heparin Sodium (Porcine) (Heparin Sq 5000 Unit/0.5ml) 5,000 unit Q8 SQ 08/25/16 22:00 09/24/16 21:59 Acetaminophen (Tylenol Tab) 650 mg Q4H PRN PO 08/25/16 18:30 09/24/16 18:29 Ondansetron HCl (Zofran Inj) 4 mg Q6H PRN IV 08/25/16 18:30 09/24/16 18:29 Nitroglycerin (Nitrostat Tab) 0.4 mg UD PRN SL 08/25/16 18:30 09/24/16 18:29 Aspirin (Ecotrin Tab) 81 mg DAILY PO 08/26/16 09:00 09/25/16 08:59 08/27/16 08:36 81 MG Fish Oil ([place]-3 (Purified Fish Oil) Cap) 1 gm TID PO 08/25/16 21:00 09/24/16 20:59 08/27/16 08:35 1 GM Sertraline HCl (Zoloft Tab) 100 mg DAILY PO 08/26/16 09:00 09/25/16 08:59 08/27/16 08:36 100 MG Vitamin B Complex (Vitamin B Complex) 1 tab DAILY PO 08/26/16 09:00 09/25/16 08:59 08/27/16 08:35 1 TAB Miscellaneous Information (Order Awaiting Action) 1 ea QS N/A 08/25/16 21:00 09/24/16 20:59 Pantoprazole Sodium (Protonix Tab) 40 mg DAILY PO 08/26/16 09:00 09/25/16 08:59 08/27/16 08:35 40 MG Ranitidine HCl (zANTac TAB) 300 mg HS PO 08/25/16 21:00 09/24/16 20:59 08/26/16 21:32 300 MG Miscellaneous (Iv Fluids Completed) 1 ea PRN PRN N/A 08/25/16 20:00 08/25/17 19:59 Gadobutrol (Gadavist) 10 mmol UD PRN IV 08/25/16 22:00 08/29/16 21:59
[2016-08-27 14:21] VITALS: BP 155/89; PULSE 99; TEMP 36.6; O2SAT 92
[2016-08-27 16:09] VITALS: BP 161/92; PULSE 87; TEMP 36.7; O2SAT 95
[2016-08-27] MEDS ORDERED: EZET10TA66 PO (17:00)
--- NOTE | 2016-08-27 17:11 | Discharge Instructions ---
Discharge Instructions Date of Service August 27, 2016. Admission Reason for Admission: Dizziness Discharge Discharge Diagnosis / Problem: Dizziness, Dyslipidemia, Hypertension, Diabetes Discharge Goals Goal(s): Decrease discomfort, Improve function, Improve disease control Activity Recommendations Activity Limitations: resume your previous activity (as tolerated) . Instructions / Follow-Up Instructions / Follow-Up Follow up with your primary care provider Dr. Benjamin on 08/30 at 12:45 pm Follow up with neurology Dr. Morel as outpatient if dizziness worsening [facility] will call you to schedule an appointment for the aneurysm Follow up a healthy diet, limited Carb, concentrated sugar intake You will start Ezetimibe. Please Check liver enzymes and CK level in 1 week Fall precaution You can continue Physical therapy as an outpatient Current Hospital Diet Patient's current hospital diet: AHA Diet (Heart Healthy), Diabetes Type 2 Diet Discharge Diet Recommended Diet: AHA Diet (Heart Healthy), Diabetes Type 2 Diet Pending Studies Studies pending at discharge: no Laboratory Results Lipid Panel Test 08/27/16 05:17 Range/Units Triglycerides Level 262 H 0-150 mg/dl Cholesterol Level 260 H 0-200 mg/dl HDL Cholesterol 33 mg/dl Cholesterol/HDL Ratio 7.9 LDL Cholesterol, Calculated 175 mg/dl Medical Emergencies . Who to Call and When: Medical Emergencies: If at any time you feel your situation is an emergency, please call 911 immediately. . Non-Emergent Contact Non-Emergency issues call your: Primary Care Provider Call Non-Emergent contact if: you have any medication questions . . "Provider Documentation" section prepared by Praneeth Das. . VTE Core Measure Inpt VTE Proph given/why not?: Unfractionated heparin SQ, SCD's, Refusal of treatmnt by pt (pt refused SQ heparin)
--- NOTE | 2016-08-30 00:16 | Discharge Summary ---
Discharge Summary Date of Service August 29, 2016. Discharge Summary Admission Date: August 25, 2016 at 18:15 Discharge Date: August 27, 2016 Discharge Disposition: Home Principal Diagnosis: Dizziness Secondary Diagnoses/Problems: Dizziness Dyslipidemia Hypertension Diabetes Procedures: BONY ORBITS 3 VIEWS CLINICAL HISTORY: MRI clearance. FINDINGS: 3 views of the bony orbits are correlated with CT of the brain dated 08/25/2016. There is no radiodense/metallic foreign body seen in the region of the bony orbits. The bony orbits are grossly intact. The imaged paranasal sinuses and the mastoid air cells appear clear. The visualized calvarium appears intact. The patient is edentulous. IMPRESSION: There is no radiodense/metallic foreign body seen in the region of the bony orbits. Electronically signed by: Jack Obrien M.D. 08/25/2016 8:16 PM MRI OF THE BRAIN COMBO CLINICAL HISTORY: Dizziness. COMPARISON STUDY: CT of the brain dated 08/25/2016. TECHNIQUE: MRI of the brain was performed utilizing various T1 and T2-weighted sequences in the axial, sagittal, and coronal planes. Contrast-enhanced sequences were acquired following the administration of 10 cc of Gadavist. FINDINGS: Brain parenchyma: The brain parenchyma is normal in appearance. There is no hemorrhage or mass effect. There is no restricted diffusion to suggest acute ischemia. No enhancing mass lesion is identified on the postcontrast images. Ash-white matter differentiation is preserved. No extra-axial fluid collection is seen. The cerebellar tonsils are normal in configuration. Ventricles, sulci, and cisterns: Normal in configuration. Pituitary and sella: Unremarkable. Intracranial vasculature: Normal flow voids are maintained at the skull base. Orbits: The bony orbits are grossly intact. Orbital contents are normal in appearance. Sinuses and mastoids: There is a retention cyst in the right maxillary antrum. Mucosal thickening is seen within the left frontal sinus. The remaining paranasal sinuses are clear. The mastoid air cells are well pneumatized. Calvarium: Unremarkable. Cervical cord: Partially visualized cervical spinal cord is normal in morphology and signal intensity. IMPRESSION: No acute intracranial abnormality. Electronically signed by: Jack Obrien M.D. 08/25/2016 10:07 PM Dictated Date/Time: 08/25/2016 10:04 PM MR ANGIOGRAM OF THE BRAIN CLINICAL HISTORY: Dizziness. Change in mental status. COMPARISON STUDY: CT of the brain dated 08/25/2016. TECHNIQUE: 3-D [id number] MR angiography of the intracranial circulation is performed. 3-D tumble views are created and assessed. IV contrast was not administered for this examination. FINDINGS: There is a small right posterior communicating artery. The internal carotid arteries are widely patent bilaterally, as are the anterior and middle cerebral arteries. The vertebrobasilar system and posterior cerebral arteries are widely patent. The vertebral arteries are codominant. There is a 5 mm aneurysm arising from the right and 3 segment as seen on axial image #99. No additional aneurysm is seen. There is no high-grade stenosis or focal vessel cutoff seen throughout the intracranial circulation. The brain parenchyma is normal as visualized. IMPRESSION: 1. 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 2. Otherwise unremarkable MR angiogram of the brain. Electronically signed by: Jack Obrien M.D. 08/25/2016 9:06 PM Dictated Date/Time: 08/25/2016 9:02 PM MR ANGIOGRAM OF THE NECK COMBO CLINICAL HISTORY: Dizziness. COMPARISON STUDY: Carotid artery ultrasound dated 07/11/2009. TECHNIQUE: Axial 2-D [id number] MR angiography of the neck is performed. Subsequently, following the IV administration of 10 cc of Gadavist coronal MR angiogram of the neck was performed to corroborate the findings. 3-D reformats are created and assessed. All measurements were calculated based on NASCET criteria. FINDINGS: Visualized portions of the thoracic aorta are normal in caliber. The aortic arch demonstrates standard 3-vessel anatomy. The subclavian arteries are widely patent. The right common carotid artery is widely patent, as are the right internal and external carotid arteries. The left common carotid artery is widely patent, as are the left internal and external carotid arteries. The vertebral arteries are widely patent and codominant. IMPRESSION: Unremarkable MR angiogram of the neck Electronically signed by: Jack Obrien M.D. 08/25/2016 10:04 PM Dictated Date/Time: 08/25/2016 10:00 PM CHEST ONE VIEW PORTABLE CLINICAL HISTORY: CHEST PAIN pain COMPARISON STUDY: 11/30/2012 FINDINGS: Mild stable cardiomegaly. Diaphragms smooth. Lungs are clear. IMPRESSION: Mild stable cardiomegaly. No acute process. Electronically signed by: Brendon Melendez M.D. 08/25/2016 3:36 PM Dictated Date/Time: 08/25/2016 3:[address]AST CT DOSE: 765.09 mGycm HISTORY: Mental status change dizziness TECHNIQUE: Multiaxial CT images of the head were performed without the use of intravenous contrast. Comparison: None. Findings: The paranasal sinuses and mastoid air cells are clear. The calvarium and skull base are intact. The ventricles and sulci are within normal limits. There is no mass, hematoma, midline shift, or acute infarct. Impression: No acute intracranial abnormality. Electronically signed by: Brendon Melendez M.D. 08/25/2016 3:32 PM Dictated Date/Time: 08/25/2016 3:31 PM Consultations: Neuro Medication Reconciliation New Medications: Ezetimibe (Ezetimibe) 10 Mg Tab 1 TAB PO DAILY for 30 Days Continued Medications: Aspirin (Aspirin Ec) 81 Mg Tab 81 MG PO DAILY B Complex W/ C (Vitamin B Complex-C) 1 Cap Cap 1 CAP PO DAILY Cyclosporine (Ophth) (Restasis) 0.05 % Emu 1 DROP OPB DAILY PRN for DRYNESS, BTL Diclofenac (Voltaren) 75 Mg Tabcr 75 MG PO BIDM, TAB WITH FOOD Fish Oil (Orange-3) 1 Ea Cap 1 CAP PO TID, CAP Nutritional Supplements (Glucosamine Complex) 1 Tab Tab 1 TAB PO BID Omeprazole (Prilosec) 40 Mg Cap 40 MG PO DAILY, CAP Ranitidine (Zantac) 300 Mg Tab 300 MG PO HS, TAB Sertraline (Zoloft) 100 Mg Tab 100 MG PO DAILY, TAB Admission Information HPI (per Admitting provider): Patient seen and examined. 61 year old male with PMHx of DM2, LINDA on CPAP, HLD, and depression presents to the ED complaining of dizziness x 4 weeks. Patient reports that he was diagnosed with DM2 about 5 weeks ago. He was started on metformin and a few days latter he started to have dizziness, and nausea in the mornings. About a week ago he called his PCP and was told to stop the metformin. Since then the nausea has resolved but the dizziness has worsened and over the last four days it has been constant. He describes it as feeling "funny, lightheaded and like he's drunk." He reports it is worse when he stands from a sitting position but continues even when sitting. He states he feels off balance and a few days ago he fell down the stairs. He denies injury at that time. He states it is sometimes worse after eating. Patient reports he has allergies and always feels like he has sinus congestion. He reports chronic tinnitus in his left ear for about 6 years. He states he gets a "twinge" in his left chest off and on that feels like a muscle pulling and that this has also been going on for years. 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 He denies fevers, chills, cough, SOB, palpitations, nausea, vomiting, diarrhea, dysuria, calf pain and edema. He denies vision changes or head trauma. He denies ever having these symptoms in the past. He saw his PCP in followup today who referred him to the ED for further evaluation. In the ED VS are stable,orthostatic VS pulse is positive from supine to sitting otherwise orthostatics are negative. CBC, PRP, Mirtha are negative. CT head and CXR are unremarkable. EKG shows nonspecific t wave changes which are seen on previous EKGs. He received IVFs. He will be observed for further workup and treatment. Physical Exam (per Admitting): General Appearance: + pertinent finding (Pleasant WD?WN 61 year old male lying in bed in NAD ) Head: normocephalic, atraumatic Eyes: PERRL, EOMI, sclerae normal ENT: hearing grossly normal, TMs normal, pharynx normal Neck: supple, no JVD, no carotid bruits Respiratory/Chest: chest non-tender, lungs clear, normal breath sounds, no respiratory distress, no accessory muscle use Cardiovascular: regular rate, rhythm, no edema, no gallop, no JVD, normal peripheral pulses, + systolic murmur Abdomen/GI: normal bowel sounds, non tender, soft Back: normal inspection, no muscle spasm Extremities/Musculoskelatal: no calf tenderness, normal capillary refill, no pedal edema Neurologic/Psych: alert, oriented x 3, + pertinent finding (no focal deficits noted, subjective dizziness ) Skin: normal color, warm/dry, no rash Lymphatic: no adenopathy Hospital Course INTRACTABLE DIZZINESS CT head Negative for any intracranial abnormality MRI head Negative for any intracranial abnormality MRA head showed a 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 MRI orbit showed no radiodense/metallic foreign body seen in the region of the bony orbits. B12, Folate wnl Family hx of cerebral aneurysm No arrhythmia on tele monitor Neuro on board, recommended follow outpatient with repeat imaging for the aneurysm Continue PT Clinically improved ECHO * The left ventricle is normal in size. * There is mild concentric left ventricular hypertrophy. * The left ventricular wall motion is normal. * Left ventricular systolic function is normal. * Ejection Fraction = 60-65%. * The aortic valve is not well visualized. * The aortic valve leaflets are mildly calcified. * Mild valvular aortic stenosis. * No aortic regurgitation is present. * no ASD H/O AORTIC STENOSIS -mild per echo in 2014 -will update given current symptomatology DM2 -Recent A1c 6.5 (07/09/16) -Metformin recently stopped d/t possible side effects -random serum glucose 115 today -Consistent carb diet -Discussed about life style modification, diet and exercise HLD Not at goal Total 260 LDL 175 -history of statin intolerance -(as per pt he said that he did not have any problem with statin, but his chart has allergies with lovastatin) - ( Lipitor was discontinue due to elevated liver enzymes and elevated CK) - Will try Zetia instead for now, Check LFT and CK within 1 week. - Will defer to PCP to try another statin -continue Fish oil LINDA -continue CPAP DEPRESSION -continue Zoloft GERD -continue PPI, H2 kailyn H/O JO No acute issue DVT PROPHYLAXIS: Sq heparin CODE STATUS: FULL CODE Total time spent on discharge = 35 minutes This includes examination of the patient, discharge planning, medication reconciliation, and communication with other providers. Discharge Instructions Discharge Instructions Date of Service August 27, 2016. Admission Reason for Admission: Dizziness Discharge Discharge Diagnosis / Problem: Dizziness, Dyslipidemia, Hypertension, Diabetes Discharge Goals Goal(s): Decrease discomfort, Improve function, Improve disease control Activity Recommendations Activity Limitations: resume your previous activity (as tolerated) . Instructions / Follow-Up Instructions / Follow-Up Follow up with your primary care provider Dr. Benjamin on 08/30 at 12:45 pm Follow up with neurology Dr. Morel as outpatient if dizziness worsening [facility] will call you to schedule an appointment for the aneurysm Follow up a healthy diet, limited Carb, concentrated sugar intake You will start Ezetimibe. Please Check liver enzymes and CK level in 1 week Fall precaution You can continue Physical therapy as an outpatient Current Hospital Diet Patient's current hospital diet: AHA Diet (Heart Healthy), Diabetes Type 2 Diet Discharge Diet Recommended Diet: AHA Diet (Heart Healthy), Diabetes Type 2 Diet Pending Studies Studies pending at discharge: no Laboratory Results Lipid Panel Test 08/27/16 05:17 Range/Units Triglycerides Level 262 H 0-150 mg/dl Cholesterol Level 260 H 0-200 mg/dl HDL Cholesterol 33 mg/dl Cholesterol/HDL Ratio 7.9 LDL Cholesterol, Calculated 175 mg/dl Medical Emergencies . Who to Call and When: Medical Emergencies: If at any time you feel your situation is an emergency, please call 911 immediately. . Non-Emergent Contact Non-Emergency issues call your: Primary Care Provider Call Non-Emergent contact if: you have any medication questions . . "Provider Documentation" section prepared by Praneeth Das. . VTE Core Measure Inpt VTE Proph given/why not?: Unfractionated heparin SQ, SCD's, Refusal of treatmnt by pt (pt refused SQ heparin) Additional Copies To Minor Benjamin MD
== END 2016-08-27 18:50 | disposition home or self-care (01) ==
LOC: ENRESERVTM → ENRESERVDT → EDBD 14:43 → C.EDA 14:44 → C.MED 18:15
PROVIDERS: ADMIT Hospitalist; ATTEND Internal Medicine
DX: R42 Dizziness and giddiness (principal); R07.9 Chest pain, unspecified; R27.0 Ataxia, unspecified; E78.5 Hyperlipidemia, unspecified; E66.9 Obesity, unspecified; I10 Essential (primary) hypertension; E11.9 Type 2 diabetes mellitus without complications; G47.33 Obstructive sleep apnea (adult) (pediatric); F32.9 Major depressive disorder, single episode, unspecified; K21.9 Gastro-esophageal reflux disease without esophagitis; I35.0 Nonrheumatic aortic (valve) stenosis; Z87.891 Personal history of nicotine dependence; Z79.82 Long term (current) use of aspirin; Z82.49 Family history of ischemic heart disease and other diseases of the circulatory system; Z83.3 Family history of diabetes mellitus